=== PATIENT | female | born 1980 | race Caucasian/White ===

== ENCOUNTER 2018-12-28 12:44 | Emergency (ER) | payer OTHER, SELFPAY ==
[2018-12-28 12:49] VITALS: BP 121/51; PULSE 65; RESP 20; TEMP 36.1; O2SAT 100
--- NOTE | 2018-12-28 13:57 | ED.BACK ---
HPI - Back Pain/Injury <ODETTE Hi - Last Filed: 12/28/18 19:23> General Chief Complaint: Back Pain/Injury Stated Complaint: spinal injury Time Seen by Provider: 12/28/18 13:04 Source: patient Mode of arrival: ambulatory Limitations: no limitations History of Present Illness HPI Narrative: The patient is a 38-year-old female nonsmoker presents with her son for chief complaint of tingling in her lower lip. She states it is the entire lower lip. She states it started at 11:00 a.m. this morning. She states she thinks it is related to her CrossFit, on Tuesday the she had a frontal headache and neck pain. She felt better the next day when back to cross fit, and had her neck and head pain continue. She later saw her chiropractor, who cracked her neck. She saw her physio several times. She has had cupping. She states that she has been told she has tight muscles. She took ibuprofen yesterday. She denies any focal weakness, incontinence of bowel, incontinence of bladder or numbness in the saddle area. She denies any other neurological symptoms other than this tingling in her lower lip. She denies any history of cold sores. She denies any other numbness. She denies any new lipstick or substance Related Data Previous Rx's Medication Instructions Recorded cyclobenzaprine 10 mg PO TID PRN #30 tab 12/28/18 Allergies Allergy/AdvReac Type Severity Reaction Status Date / Time No Known Drug Allergies Allergy Unverified 04/29/18 13:15 Review of Systems <ODETTE Hi - Last Filed: 12/28/18 19:23> Review of Systems GENERAL: Denies chills, fatigue, malaise, fever, sweats. HEENT: See HPI RESPIRATORY: Denies dyspnea, cough, wheezing, hemoptysis, sputum. CARDIOVASCULAR: Denies chest pain, palpitations, orthopnea, edema, GASTROINTESTINAL: Denies nausea, vomiting, abdominal pain, diarrhea, constipation, melena. : Denies dysuria, frequency, incontinence, hematuria, urinary retention. MUSCULOSKELETAL: See HPI SKIN: Denies rash, skin lesions, or other NEUROLOGIC: Denies weakness, headache, numbness, change in speech, confusion, seizures, incoordination. PSYCHIATRIC: No concerning psychosocial issues. 12 point review of systems is negative except for those stated above PFSH <YEMI Hi-BC - Last Filed: 12/28/18 19:23> Social History Smoking Status: Never smoker Social History Smoking Status: Never smoker Exam <YEMI Hi-BC - Last Filed: 12/28/18 19:23> Narrative Exam Narrative: GENERAL: This is a well-nourished, well-developed patient, no acute distress pushing son in stroller HEAD: Atraumatic. Normocephalic. No temporal or scalp tenderness. EYES: Pupils equal round and reactive. Extraocular motions intact. No scleral icterus. No injection or drainage. ENT: Nose without bleeding, purulent drainage or septal hematoma. Throat without erythema, tonsillar hypertrophy or exudate. Uvula midline. Airway patent. No lip swelling. No erythema. No obvious lip injury NECK: Trachea midline. No JVD or lymphadenopathy. Supple, nontender, no meningeal signs. CARDIOVASCULAR: Regular rate and rhythm without murmurs, gallops, or rubs. RESPIRATORY: Clear to auscultation. Breath sounds equal bilaterally. No wheezes, rales, or rhonchi. GASTROINTESTINAL: Abdomen soft, non-tender, nondistended. No hepato-splenomegaly, or palpable masses. No guarding. EXTREMITIES: No clubbing, cyanosis, or edema. No joint tenderness, effusion, or edema noted. Strength is equal upper and lower extremities bilaterally. BACK: No palpable deformity or crepitance. No flank tenderness. No pain to C-spine T-spine or L-spine palpation. Pain to paraspinal muscle palpation on right side of thoracic spine. Pain bilateral sternocleidomastoid palpation NEURO: AOx3. Strength is equal upper and lower extremities bilaterally. Radialis reflexes intact bilaterally. Patellar reflex is intact bilaterally. No gross cranial nerve deficit. Sharp versus dull testing intact inaccurate on lips, face, bilateral arms, bilateral legs. Stable gait. SKIN: No rash or erythema. No rash erythema ecchymosis noted on face or back. Initial Vital Signs Initial Vital Signs: Vital Signs Temperature 97.0 F L 12/28/18 12:49 Pulse Rate 65 12/28/18 12:49 Respiratory Rate 20 12/28/18 12:49 Blood Pressure 121/51 L 12/28/18 12:49 Pulse Oximetry 100 12/28/18 12:49 <Indy Mejia DO - Last Filed: 01/01/19 07:38> Initial Vital Signs Initial Vital Signs: Vital Signs Temperature 97.0 F L 12/28/18 12:49 Pulse Rate 65 12/28/18 12:49 Respiratory Rate 20 12/28/18 12:49 Blood Pressure 121/51 L 12/28/18 12:49 Pulse Oximetry 100 12/28/18 12:49 Course <YEMI Hi-SCOT - Last Filed: 12/28/18 19:23> Vital Signs - 8 hr 12/28/18 12:49 12/28/18 14:28 Temperature 97.0 F L Pulse Rate 65 53 L Respiratory Rate 20 20 Blood Pressure 121/51 L 113/57 L Pulse Oximetry 100 100 <Indy Mejia DO - Last Filed: 01/01/19 07:38> Vital Signs - 8 hr 12/28/18 12:49 12/28/18 14:28 Temperature 97.0 F L Pulse Rate 65 53 L Respiratory Rate 20 20 Blood Pressure 121/51 L 113/57 L Pulse Oximetry 100 100 MDM - Back Pain/Injury <ODETTE Hi - Last Filed: 12/28/18 19:23> MDM Narrative Medical decision making narrative: The patient is a 38-year-old female who presents with tingling sensation and numbness in her lip that started at 11:30 a.m.. She is completely neurologically intact and has sharp versus dull testing within normal limits. She was able to differentiate between sharp versus dull on her lip as well, indicating lack of numbness. She has no red flag symptoms of fever, cancer, incontinence of bowel incontinence of bladder or saddle anesthesia. I discussed at length to come back to the ER if she had any acute findings or changes. I discussed the patient at length with Dr. Mejia given the incredibly focal complaint that she has. I do not believe she needs any imaging or immediate intervention at this point time. I encouraged her to follow up with primary care physician, they gave her contact information for the health human resource adviser. She was okay not doing imaging at this time. Patient has no questions or concerns upon discharge. Discussed at length return precautions of acute concerns as well as follow-up with PCP. Discharge Plan Departure Patient Disposition: Home Clinical Impression: Muscle spasm, Tingling Discharge Date/Time: 12/28/18 14:28 Interventions: ED Discharge Assessment Last Done: 12/28/18 14:28 Instructions: DI for Numbness/tingling, DI for Back Spasm, DI for Muscle Spasm Activity Restrictions/Additional Instructions: Please follow up with your primary provider. Please monitor for any other neurological symptoms such as numbness elsewhere, incontinence of bowel, incontinence of bladder saddle anesthesia. Please come back to emergency department for any acute concerns. I have given you a prescription of a muscle relaxer, which can be sedating. I also suggest continuing oral anti-inflammatories. I have referred you to the [facility], who can help you identify a primary care provider. Prescriptions: New cyclobenzaprine 10 mg tablet 10 mg PO TID PRN (Reason: muscle spasm) Qty: 30 RF: 0 Referrals: [facility] [Outside] <Indy Mejia DO - Last Filed: 01/01/19 07:38> Cosign ED Attending Coskristinature Attestation: I was immediately available in the department for consultation, case was discussed. No neurologic changes appreciated on patient. Plan for follow up with pcp. This documentation has been reviewed and I agree with assessment and plan. Supervised by Indy Mejia DO
--- NOTE | 2018-12-28 14:00 | ED_ITS ---
HPI - Back Pain/Injury <ODETTE Hi - Last Filed: 12/28/18 19:23> General Chief Complaint: Back Pain/Injury Stated Complaint: spinal injury Time Seen by Provider: 12/28/18 13:04 Source: patient Mode of arrival: ambulatory Limitations: no limitations History of Present Illness HPI Narrative: The patient is a 38-year-old female nonsmoker presents with her son for chief complaint of tingling in her lower lip. She states it is the entire lower lip. She states it started at 11:00 a.m. this morning. She states she thinks it is related to her Cross[employer], on Tuesday the she had a frontal headache and neck pain. She felt better the next day when back to cross fit, and had her neck and head pain continue. She later saw her chiropractor, who cracked her neck. She saw her physio several times. She has had cupping. She states that she has been told she has tight muscles. She took ibuprofen yesterday. She denies any focal weakness, incontinence of bowel, incontinence of bladder or numbness in the saddle area. She denies any other neurological symptoms other than this tingling in her lower lip. She denies any history of cold sores. She denies any other numbness. She denies any new lipstick or substance Related Data Previous Rx's Medication Instructions Recorded cyclobenzaprine 10 mg PO TID PRN #30 tab 12/28/18 Allergies Allergy/AdvReac Type Severity Reaction Status Date / Time No Known Drug Allergies Allergy Unverified 04/29/18 13:15 Review of Systems <ODETTE Hi - Last Filed: 12/28/18 19:23> Review of Systems GENERAL: Denies chills, fatigue, malaise, fever, sweats. HEENT: See HPI RESPIRATORY: Denies dyspnea, cough, wheezing, hemoptysis, sputum. CARDIOVASCULAR: Denies chest pain, palpitations, orthopnea, edema, GASTROINTESTINAL: Denies nausea, vomiting, abdominal pain, diarrhea, constipation, melena. : Denies dysuria, frequency, incontinence, hematuria, urinary retention. MUSCULOSKELETAL: See HPI SKIN: Denies rash, skin lesions, or other NEUROLOGIC: Denies weakness, headache, numbness, change in speech, confusion, seizures, incoordination. PSYCHIATRIC: No concerning psychosocial issues. 12 point review of systems is negative except for those stated above PFSH <YEMI Hi-BC - Last Filed: 12/28/18 19:23> Social History Smoking Status: Never smoker Social History Smoking Status: Never smoker Exam <YEMI Hi-BC - Last Filed: 12/28/18 19:23> Narrative Exam Narrative: GENERAL: This is a well-nourished, well-developed patient, no acute distress pushing son in stroller HEAD: Atraumatic. Normocephalic. No temporal or scalp tenderness. EYES: Pupils equal round and reactive. Extraocular motions intact. No scleral icterus. No injection or drainage. ENT: Nose without bleeding, purulent drainage or septal hematoma. Throat without erythema, tonsillar hypertrophy or exudate. Uvula midline. Airway patent. No l ip swelling. No erythema. No obvious lip injury NECK: Trachea midline. No JVD or lymphadenopathy. Supple, nontender, no meningeal signs. CARDIOVASCULAR: Regular rate and rhythm without murmurs, gallops, or rubs. RESPIRATORY: Clear to auscultation. Breath sounds equal bilaterally. No wheezes, rales, or rhonchi. GASTROINTESTINAL: Abdomen soft, non-tender, nondistended. No hepato- splenomegaly, or palpable masses. No guarding. EXTREMITIES: No clubbing, cyanosis, or edema. No joint tenderness, effusion, or edema noted. Strength is equal upper and lower extremities bilaterally. BACK: No palpable deformity or crepitance. No flank tenderness. No pain to C- spine T-spine or L-spine palpation. Pain to paraspinal muscle palpation on right side of thoracic spine. Pain bilateral sternocleidomastoid palpation NEURO: AOx3. Strength is equal upper and lower extremities bilaterally. Radialis reflexes intact bilaterally. Patellar reflex is intact bilaterally. No gross cranial nerve deficit. Sharp versus dull testing intact inaccurate on lips, face, bilateral arms, bilateral legs. Stable gait. SKIN: No rash or erythema. No rash erythema ecchymosis noted on face or back. Initial Vital Signs Initial Vital Signs: Vital Signs Temperature 97.0 F L 12/28/18 12:49 Pulse Rate 65 12/28/18 12:49 Respiratory Rate 12/28/18 12:49 Blood Pressure 121/51 L 12/28/18 12:49 Pulse Oximetry 100 12/28/18 12:49 <Indy Mejia DO - Last Filed: 01/01/19 07:38> Initial Vital Signs Initial Vital Signs: Vital Signs Temperature 97.0 F L 12/28/18 12:49 Pulse Rate 65 12/28/18 12:49 Respiratory Rate 20 12/28/18 12:49 Blood Pressure 121/51 L 12/28/18 12:49 Pulse Oximetry 100 12/28/18 12:49 Course <ODETTE Hi - Last Filed: 12/28/18 19:23> Vital Signs - 8 hr 12/28/18 12:49 12/28/18 14:28 Temperature 97.0 F L Pulse Rate 65 53 L Respiratory Rate 20 20 Blood Pressure 121/51 L 113/57 L Pulse Oximetry 100 100 <Indy Mejia DO - Last Filed: 01/01/19 07:38> Vital Signs - 8 hr 12/28/18 12:49 12/28/18 14:28 Temperature 97.0 F L Pulse Rate 65 53 L Respiratory Rate 20 20 Blood Pressure 121/51 L 113/57 L Pulse Oximetry 100 100 MDM - Back Pain/Injury <ODETTE Hi - Last Filed: 12/28/18 19:23> MDM Narrative Medical decision making narrative: The patient is a 38-year-old female who presents with tingling sensation and numbness in her lip that started at 11:30 a.m.. She is completely neurologically intact and has sharp versus dull testing within normal limits. She was able to differentiate between sharp versus dull on her lip as well, indicating lack of numbness. She has no red flag symptoms of fever, cancer, incontinence of bowel incontinence of bladder or saddle anesthesia. I discussed at length to come back to the ER if she had any acute findings or changes. I discussed the patient at length with Dr. Mejia given the incredibly focal complaint that she has. I do not believe she needs any imaging or immediate intervention at this point time. I encouraged her to follow up with primary care physician, they gave her contact information for the health family resource coordinator. She was okay not doing imaging at this time. Patient has no questions or concerns upon discharge. Discussed at length return precautions of acute concerns as well as follow-up with PCP. Discharge Plan Departure Patient Disposition: Home Clinical Impression: Muscle spasm, Tingling Discharge Date/Time: 12/28/18 14:28 Interventions: ED Discharge Assessment Last Done: 12/28/18 14:28 Instructions: DI for Numbness/tingling, DI for Back Spasm, DI for Muscle Spasm Activity Restrictions/Additional Instructions: Please follow up with your primary provider. Please monitor for any other neurological symptoms such as numbness elsewhere, incontinence of bowel, incontinence of bladder saddle anesthesia. Please come back to emergency department for any acute concerns. I have given you a prescription of a muscle relaxer, which can be sedating. I also suggest continuing oral anti-inflammatories. I have referred you to the [facility], who can help you identify a primary care provider. Prescriptions: New cyclobenzaprine 10 mg tablet 10 mg PO TID PRN (Reason: muscle spasm) Qty: 30 RF: 0 Referrals: [facility] [Outside] <Indy Mejia DO - Last Filed: 01/01/19 07:38> Cosign ED Attending Cosignature Attestation: I was immediately available in the department for consultation, case was discussed. No neurologic changes appreciated on patient. Plan for follow up with pcp. This documentation has been reviewed and I agree with assessment and plan. Supervised by Indy Mejia DO
[2018-12-28 14:28] VITALS: BP 113/57; PULSE 53; RESP 20; O2SAT 100
== END 2018-12-28 14:28 | disposition home or self-care (01) ==
PROVIDERS: Emergency Provider Nurse Practitioner Family
DX: M62.838 Other muscle spasm (principal); R20.2 Paresthesia of skin
CPT/HCPCS: 99282; 99283

== ENCOUNTER 2019-02-12 19:10 | Emergency (ER) | payer OTHER, SELFPAY ==
[2019-02-12 19:13] VITALS: BP 117/74; PULSE 66; RESP 16; TEMP 36.9; O2SAT 98
--- NOTE | 2019-02-12 20:30 | ED_ITS ---
HPI - Headache General Chief Complaint: Headache Stated Complaint: NECK PAIN HEADACHE NUMBNESS Time Seen by Provider: 02/12/19 20:29 Source: patient Mode of arrival: ambulatory Limitations: no limitations History of Present Illness HPI Narrative: 38-year-old female nonsmoker with benign medical history presents for the 2nd time in 9 weeks with similar complaints. Today she complains of some mild posterior neck pain which extends to the base of her head and occasional blurred vision. She denies any specifically focal neurologic findings such as extremity numbness, tingling or weakness. She states her symptoms started, as stated, 9 weeks ago when she was starting a new workout regimen in which she was lifting 35 lb cattle Dietrich's over her head and she felt a sudden stinging type pain in her neck. She was seen and evaluated at our emergency department and had no significant findings. Since then her symptoms have been rather consistent and she states the has the above complaints everyday. She has seen multiple [facility] rope actors and other providers without any relief. Her headache is mild and occipital and has no significant provocation, palliation or radiation. She denies any illness such as runny nose, sinus pain, sore throat, cough or chest pain. She has had no fever or chills. She states her brother has a kinked carotid artery as stated by her mother MD Complaint: headache Onset (ago): week(s) Onset description: sudden Location: occipital Severity: moderate Quality: aching Relieving factors: nothing Exacerbating factors: movement of head/neck Context: occurred with exertion/activity Treatments prior to arrival: none Related Data Previous Rx's Medication Instructions Recorded cyclobenzaprine 10 mg PO TID PRN #30 tab 12/28/18 Allergies Allergy/AdvReac Type Severity Reaction Status Date / Time No Known Drug Allergies Allergy Verified 02/12/19 19:13 Review of Systems Constitutional Denies chills, Denies fever(s), Reports headache(s), Denies lethargy and Denies weakness Eyes Denies change in vision, Denies eye discharge, Denies irritation and Denies loss of vision ENT Ears, Nose, Mouth, and Throat: Denies change in voice, Reports headache(s), Denies neck pain and Denies sore throat Cardiovascular Denies chest pain, Denies irregular heart rhythm, Denies lightheadedness, Denies palpitations, Denies dyspnea, Denies dyspnea on exertion and Denies orthopnea Respiratory Denies cough, Denies dyspnea, Denies dyspnea on exertion and Denies wheezing Gastrointestinal Gastrointestinal: Denies abdominal pain, Denies change in bowel habits, Denies diarrhea, Denies nausea and Denies vomiting Genitourinary Denies hematuria, Denies flank pain, Denies urinary incontinence and Denies urinary urgency Musculoskeletal Denies neck pain Integumentary/Breasts Denies pruritus, Denies erythema, Denies rash and Denies wounds Neurologic Denies confusion, Reports headache(s), Denies loss of vision and Denies weakness Psychiatric Denies anxiety, Denies confusion, Denies depression, Denies homicidal ideation and Denies suicidal ideation Endocrine Denies palpitations Hematologic/Lymphatic Denies easy bruising Allergic/Immunologic Denies wheezing PFSH Social History Smoking Status: Never smoker Social History Smoking Status: Never smoker Exam Narrative Exam Narrative: GENERAL: This is a well-nourished, well-developed patient, in mild distress. HEAD: Atraumatic. Normocephalic. No temporal or scalp tenderness. EYES: Pupils equal round and reactive. Extraocular motions intact. No scleral icterus. No injection or drainage. ENT: Nose without bleeding, purulent drainage or septal hematoma. Throat without erythema, tonsillar hypertrophy or exudate. Uvula midline. Airway patent. NECK: Trachea midline. No JVD or lymphadenopathy. Supple, nontender, no meningeal signs. CARDIOVASCULAR: Regular rate and rhythm without murmurs, gallops, or rubs. RESPIRATORY: Clear to auscultation. Breath sounds equal bilaterally. No wheezes, rales, or rhonchi. GASTROINTESTINAL: Abdomen soft, non-tender, nondistended. No hepato-sp lenomegaly, or palpable masses. No guarding. EXTREMITIES: No clubbing, cyanosis, or edema. No joint tenderness, effusion, or edema noted. BACK: Nontender without deformity or crepitance. No flank tenderness. NEURO: AOx3. SKIN: No rash or erythema. Initial Vital Signs Initial Vital Signs: Vital Signs Temperature 98.5 F 02/12/19 19:13 Pulse Rate 66 02/12/19 19:13 Respiratory Rate 16 02/12/19 19:13 Blood Pressure 117/74 02/12/19 19:13 Pulse Oximetry 98 02/12/19 19:13 Course Orders Ordered: ED Orders 02/12/19 21:36 CT angio head and neck Stat 02/12/19 21:45 Basic Metabolic Panel Stat Complete Blood Count AUTO DIFF Stat Discontinued Medications Sodium Chloride (Normal Saline 0.9%) 1,000 mls @ 1,000 mls/hr IV BOLUS ONE Stop: 02/12/19 22:35 Last Infusion: 02/12/19 23:23 Dose: 0 mls/hr Infusion: 02/12/19 22:31 Dose: 1,000 mls/hr Infusion: 02/12/19 22:17 Dose: 0 mls/hr Admin: 02/12/19 22:05 Dose: 1,000 mls/hr Vital Signs - 8 hr 02/12/19 23:22 02/13/19 00:17 Temperature 98.0 F Pulse Rate 58 L 70 Respiratory Rate 16 16 Blood Pressure [Left Arm] 122/91 H 102/59 L Pulse Oximetry 100 100 MDM - Headache Differential Diagnosis Differential diagnosis: Likely migraine, tension headache, subarachnoid hemorrhage, headache, meningitis, sinusitis and postconcussion syndrome Medical Records Attestation: I reviewed the patient's medical records. Lab Data Attestation: I reviewed the patient's lab results. Result diagrams: 02/12/19 21:45 02/12/19 21:45 Lab Results 02/12/19 02/12/19 Range/Units 21:45 21:45 WBC 10.6 (4.5-11.0) X10^3/uL RBC 4.52 (4.0-5.2) X10^6/uL Hgb 13.1 (12.0-16.0) g/dL Hct 39.2 (36-46) % MCV 86.7 (80-100) fL MCH 28.9 (26-34) PG MCHC 33.4 (30-36) % RDW 13.7 (11.6-14.8) % Plt Count 399 (150-400) X10^3/uL Neut % (Auto) 56.4 (50-75) % Lymph % (Auto) 36.1 (25-40) % Douglas % (Auto) 5.5 (3-14) % Eos % (Auto) 1.5 L (2-4) % Baso % (Auto) 0.5 (0-2) % Neut # (Auto) 6000 (7372-2738) /uL Lymph # (Auto) 3800 (2163-4196) /uL Douglas # (Auto) 600 (0-900) /uL Eos # (Auto) 200 (0-450) /uL Baso # (Auto) 100 (0-100) /uL Sodium 140 (137-145) mmol/L Potassium 3.8 (3.4-5.1) mmol/L Chloride 102 (98-107) mmol/L Carbon Dioxide 29 (22-32) mmol/L BUN 15 (7-17) mg/dL Creatinine 0.70 (0.52-1.04) mg/dL Estimated GFR > 60.0 (>60) mL/min BUN/Creatinine Ratio 21.4 (6-22) Glucose 89 (70-100) mg/dL Calcium 9.5 (8.4-10.2) mg/dL Point of Care Testing Test Results Negative Urine Dip Bedside Urine Glucose Negative Bedside Urine Bilirubin - Negative Bedside Urine Ketone - Negative Urine Specific [place] 1.010 Bedside Urine Occult Blood - Negative Bedside Urine pH 6.5 Bedside Urine Protein - Negative Bedside Urine Urobilinogen - Negative Bedside Urine Nitrite - Negative Bedside Urine Leukocytes - Negative Esterase Imaging Data CTA Head/Neck: Radiologist's impression: Patent head and neck CT angiography Slightly irregular middle anterior / anterior cerebral arteries are indeterminant MDM Narrative Medical decision making narrative: Multiple etiologies for patient's symptoms considered including: [Subarachnoid hemorrhage versus aneurysmal change versus stroke versus dissection versus meningitis versus other] Patient's symptoms improved or duration of stay with above-stated therapies. Findings and discharge diagnosis discussed with patient/family followed by verbalization of understanding Return precautions discussed with patient/family whom verbalize understanding. Discharge Plan Departure Patient Disposition: Home Clinical Impression: Headache Qualifiers: Headache type: unspecified Headache chronicity pattern: acute headache Intrac tability: not intractable Qualified Code(s): R51 - Headache Discharge Date/Time: 02/13/19 00:42 Interventions: ED Discharge Assessment Last Done: 02/13/19 00:42 Activity Restrictions/Additional Instructions: *You have been diagnosed with [headache and neck pain] *What to do: *Take medications as directed: Tylenol or Motrin for pain *Follow up with your primary care provider in 2-3 days, call for an appointment. Let them know you were seen in the Emergency Department and that we ask that you be seen in follow up *Return to ER if you should have any new, worsening or concerning symptoms Prescriptions: No Action cyclobenzaprine 10 mg tablet 10 mg PO TID PRN (Reason: muscle spasm) Qty: 30 RF: 0
--- NOTE | 2019-02-12 21:36 | DI.CT.S_ITS ---
PROCEDURE: CT ANGIO HEAD AND NECK INDICATIONS: head/neck pain, neuro symptoms, sudden onset with heavy lift TECHNIQUE: Pre-contrast 4.5 mm thick sections acquired from the foramen magnum to the vertex. After the administration of intravenous contrast, 1 mm thick sections acquired from the aortic arch through the [place] of [place]. Post-contrast 4.5 mm thick sections then re-acquired from the foramen magnum to the vertex. 3-dimensional bwqxyiq-vilwzvrao-rjoybmamuw (MIP) and/or volume rendering reformats were acquired of the central intracranial vasculature and neck separately. COMPARISON: None. FINDINGS: Image quality: Excellent. BRAIN: CSF spaces: Ventricles are normal in size and shape. Basal cisterns are patent. No extra-axial fluid collections. Brain: No midline shift. No intracranial bleeds or masses. Robertson-white matter interface appears intact. Skull and face: Calvarium and facial bones appear intact, without suspicious lesions. Orbits appear normal. Sinuses: Sinuses and mastoids are clear. HEAD CT ANGIOGRAPHY: Anterior circulation: Intracranial internal carotid arteries are normal in flow. There is mild, slightly irregular, short segment narrowing of the left internal carotid artery at the clinoid segment. The flow within the paired anterior cerebral arteries is normal and symmetric. The flow within the middle cerebral arteries is normal and symmetric. There is slight irregularity of the M1 segments of the middle cerebral arteries bilaterally in the A1 segments of the interstitial arteries bilaterally. The anterior communicating artery is seen. No aneurysms are seen. Posterior circulation: Visualized portions of the vertebral arteries demonstrate normal caliber, and join to form a normal appearing basilar artery. Flow within the posterior cerebral arteries is normal and symmetric. No aneurysms are seen. NECK CT ANGIOGRAPHY: Carotid system: The great vessels demonstrate a conventional anatomy as they arise from the aortic arch. The origins of the common carotid arteries appear patent. The common carotid arteries demonstrate normal caliber and courses. The bifurcation regions are both widely patent. The internal carotid arteries demonstrate normal calibers and courses. Posterior circulation: The origins of the vertebral arteries both appear widely patent. The more superior extracranial portions of both vertebral arteries also demonstrate normal courses and calibers. They join to form a normal appearing basilar artery. Soft tissues: Visualized neck soft tissues demonstrate no suspicious abnormalities. Bones: No suspicious bony lesions. Visualized cervical spine appears normally aligned. IMPRESSION: 1. No acute intracranial disease process. 2. No large vessel occlusion, hemodynamically significant stenosis, vascular dissection or aneurysm. 3. Slight irregularity of the proximal anterior and middle cerebral arteries bilaterally with slight irregularity and slight narrowing of the clinoid segment left internal carotid artery. Finding is indeterminate, but can be related to vasculitis. Please correlate with clinical and laboratory data. Any quantitative measurements of stenosis were performed using NASCET criteria. Dictated by: Ninfa Ching MD, PhD on 02/13/2019 at 8:48 Approved by: Ninfa Ching MD, PhD on 02/13/2019 at 8:55
[2019-02-12 21:55] LABS: Add Manual Diff / Slide Review NO; Basophils Absolute Auto 100 /uL (0-100); Basophils Percent Auto 0.5 % (0-2); Eosinophils Absolute Auto 200 /uL (0-450); Eosinophils Percent Auto 1.5 % (2-4); Hematocrit 39.2 % (36-46); Hemoglobin 13.1 g/dL (12.0-16.0); Lymphocytes Absolute Auto 3800 /uL (1100-4500); Lymphocytes Percent Auto 36.1 % (25-40); Mean Corpuscular HGB Conc 33.4 % (30-36); Mean Corpuscular Hemoglobin 28.9 PG (26-34); Mean Corpuscular Volume 86.7 fL (80-100); Monocytes Absolute Auto 600 /uL (0-900); Monocytes Percent Auto 5.5 % (3-14); Neutrophils Absolute Auto 6000 /uL (1500-7000); Neutrophils Percent Auto 56.4 % (50-75); Platelet Count 399 X10^3/uL (150-400); Red Blood Cell Count 4.52 X10^6/uL (4.0-5.2); Red Cell Distribution Width 13.7 % (11.6-14.8); White Blood Cell Count 10.6 X10^3/uL (4.5-11.0)
[2019-02-12] MEDS: SODIUM CHLORIDE 0.9% 1,000 ML 1000 ML IV (22:05)
[2019-02-12 22:06] LABS: BUN Creatinine Ratio 21.4 (6-22); Blood Urea Nitrogen 15 mg/dL (7-17); Calcium 9.5 mg/dL (8.4-10.2); Carbon Dioxide 29 mmol/L (22-32); Chloride 102 mmol/L (98-107); Estimated Glomerular Filt Rate > 60.0 mL/min (>60); Glucose 89 mg/dL (70-100); HEMOLYSIS < 15 (0-50); Potassium 3.8 mmol/L (3.4-5.1); Sodium 140 mmol/L (137-145)
[2019-02-12 23:22] VITALS: BP 122/91; PULSE 58; RESP 16; O2SAT 100
[2019-02-13 00:17] VITALS: BP 102/59; PULSE 70; RESP 16; TEMP 36.7; O2SAT 100
== END 2019-02-13 00:42 | disposition home or self-care (01) ==
PROVIDERS: Emergency Provider Emergency Medicine
DX: R51 Headache (principal)
CPT/HCPCS: 36591; 70496; 70498; 80048; 81003; 81025; 85025; 96360; 99283; 99284; Q9967

== ENCOUNTER → 2019-06-15 12:11 | Outpatient (CLI) | payer OTHER, SELFPAY ==
--- NOTE | 2019-06-15 12:13 | DI.RAD.S_ITS ---
PROCEDURE: XR CERVICAL SPINE 4V OR 5V INDICATIONS: Neck pain upper extremity paresthesias TECHNIQUE: 5 views of the cervical spine acquired. COMPARISON: None. FINDINGS: Bones: No fractures or dislocations to the T1 level. Oblique images demonstrate no bony foraminal stenoses. Soft tissues: No prevertebral soft tissue swelling. IMPRESSION: Normal examination. Source and neck pain is not known. Dictated by: Lukas Bang M.D. on 06/20/2019 at 16:13 Approved by: Lukas Bang M.D. on 06/20/2019 at 16:13
== END ==
PROVIDERS: Visit Provider Physical Medicine & Rehabilitation
DX: M54.2 Cervicalgia (principal); R20.2 Paresthesia of skin
CPT/HCPCS: 72050

== ENCOUNTER → 2019-08-14 09:19 | Outpatient (CLI) | payer OTHER, SELFPAY ==
--- NOTE | 2019-08-14 09:20 | DI.MRI.S_ITS ---
PROCEDURE: MR BRAIN (IAC) WWO CON INDICATIONS: Cervicalgenic headaches TECHNIQUE: Noncontrast sagittal T1 spin echo, axial FLAIR, axial gradient echo, axial diffusion and ADC through the brain. Axial thin-slice 3D CISS, coronal TruFISP, axial T1 spin echo with fat saturation through the internal auditory canals. After the administration of contrast, thin slice axial and coronal T1 spin echo with fat saturation through the internal auditory canals, and axial T1 spin echo with fat saturation through the brain. COMPARISON: [facility], CT, CT ANGIO HEAD AND NECK, 02/12/2019, 21:40. [facility], MR, MR CERVICAL SPINE WO CON, 08/14/2019, 9:22. FINDINGS: Image quality: Excellent. Cerebellopontine angles: No cerebellopontine angle masses. Inner ear structures appear normally formed. No suspicious enhancement in the internal auditory canal or along the course of the 7th cranial nerve. CSF spaces: Ventricles are normal in size and shape. No extra-axial fluid collections. Basal cisterns are patent. Brain: No intracranial bleeds or mass effects. Robertson-white matter interface is intact. No abnormal intracranial enhancement. Diffusion weighted images demonstrate no acute ischemic insults. Brainstem appears normal. Normal intravascular flow voids are present. Skull and face: Calvarial marrow signal is normal. Orbits appear normal. Sinuses: There is a prominent mucous retention cyst seen involving the left maxillary sinus. Moderate mucosal thickening is seen within the right maxillary sinus, with mild mucosal thickening seen elsewhere within the paranasal sinuses. No abnormal fluid is seen within the mastoid air cells. IMPRESSION: Unremarkable intracranial study, without an imaging explanation found for the patient's presenting history of headache. No masses or abnormal enhancement can be seen involving the cerebellopontine angle cisterns or the internal auditory canals. Dictated by: Devin Nuno M.D. on 08/14/2019 at 11:07 Approved by: Devin Nuno M.D. on 08/14/2019 at 11:13
--- NOTE | 2019-08-14 09:20 | DI.MRI.S_ITS ---
PROCEDURE: MR CERVICAL SPINE WO CON INDICATIONS: Cervicalgenic headaches TECHNIQUE: Noncontrast sagittal T1 spin echo and T2 fast spin echo, sagittal STIR, foraminal oblique sagittal T2 fast spin echo, and axial gradient echo or T2 fast spin echo through the cervical spine. COMPARISON: [facility], MR, MR BRAIN (IAC) WWO CON, 08/14/2019, 9:44. [facility], CR, XR CERVICAL SPINE 4V OR 5V, 06/15/2019, 12:12. [facility], CT, CT ANGIO HEAD AND NECK, 02/12/2019, 21:40. FINDINGS: Image quality: Excellent. Alignment and Curvature: There is straightening of the normal cervical lordosis. No focal AP alignment abnormality is seen. Bone Marrow: Marrow demonstrates normal overall signal. Spinal Cord: Visualized spinal cord has normal size and signal. No cerebellar tonsillar herniation. Paraspinous Soft Tissues: No paravertebral masses. Prevertebral soft tissues are normal in thickness. A prominent mucous retention cyst can be seen within the left maxillary sinus. C2-C3: Normal appearance. C3-C4: Normal appearance. C4-C5: Normal appearance. C5-C6: Normal appearance. C6-C7: Normal appearance. C7-T1: Normal appearance. IMPRESSION: Straightening of the normal cervical lordosis is seen, which is commonly observed in patients with muscular spasm. No significant disc pathology, central canal narrowing, or neural foraminal narrowing seen. Dictated by: Devin Nuno M.D. on 08/14/2019 at 11:13 Approved by: Devin Nuno M.D. on 08/14/2019 at 11:15
== END ==
PROVIDERS: PCP Family Medicine; Referring Provider Family Medicine; Visit Provider Family Medicine
DX: R51 Headache (principal); M47.22 Other spondylosis with radiculopathy, cervical region
CPT/HCPCS: 70553; 72141; A9579

== ENCOUNTER → 2019-11-28 15:41 | Outpatient (CLI) | payer OTHER, SELFPAY ==
--- NOTE | 2019-11-28 15:43 | DI.US.S_ITS ---
PROCEDURE: US PELVIC COMPLETE INDICATIONS: DYSMENORRHEA, DUB SINCE JULY 2019 TECHNIQUE: Real-time scanning was performed of the pelvic organs, with image documentation. Additional endovaginal scanning was necessary due to incomplete visualization of the adnexal and endometrial structures by transabdominal scanning. COMPARISON: None. FINDINGS: Transabdominal scanning: A mild amount of free pelvic fluid is seen, which is considered to be within physiologic limits. Limited scanning through the kidneys shows no hydronephrosis. Endovaginal scanning: Uterus: Uterus is normal in size at 8 x 3.8 x 5.6 cm. The endometrium measures 4 mm in combined thickness. Apparent cystic collections can be seen within the fundus of the uterus, which measure up to 1.7 centimeters. Ovaries: The right ovary measures 4.4 x 3.2 x 2.7 cm. The left ovary measures 3.9 x 2 x 1.8 cm. The ovaries have a normal sonographic appearance. No adnexal masses are seen. IMPRESSION: Apparent cystic collections seen within the fundus of the uterus. Otherwise, no significant pelvic ultrasound abnormality can be seen. Dictated by: Devin Nuno M.D. on 11/28/2019 at 16:30 Approved by: Devin Nuno M.D. on 11/28/2019 at 16:32
== END ==
PROVIDERS: PCP Family Medicine; Referring Provider Family Medicine; Visit Provider Family Medicine
DX: N94.6 Dysmenorrhea, unspecified (principal); N85.8 Other specified noninflammatory disorders of uterus
CPT/HCPCS: 76830; 76856

== ENCOUNTER → 2020-03-11 07:22 | Outpatient (CLI) | payer OTHER, SELFPAY ==
--- NOTE | 2020-03-11 07:23 | DI.US.S_ITS ---
PROCEDURE: US PELVIC COMPLETE INDICATIONS: DYSMENORRHEA TECHNIQUE: Real-time scanning was performed of the pelvic organs, with image documentation. Additional endovaginal scanning was necessary due to incomplete visualization of the adnexal and endometrial structures by transabdominal scanning. COMPARISON: [facility], , PELVIC COMPLETE, 11/28/2019, 16:05. FINDINGS: Transabdominal scanning: Limited scanning through the kidneys shows no hydronephrosis. No pathologic free abdominal or pelvic fluid. Two previously present cysts are seen at the endometrial margin without significant change in size, measuring 1.2 cm at the simple cyst and 1.0 cm at the mildly complex cyst previously documented in November of this year.. Endovaginal scanning: Uterus: Uterus is normal in size at 4.6 x 6.1 x 9.0 cm, anteverted. The endometrium measures 3.2 mm in combined thickness. Ovaries: The right ovary measures 3.6 x 2.2 x 1.9 cm and the left measures 4.1 x 2.2 x 4.5 cm with a simple appearing left ovarian cyst measuring up to 1.5 x 2.3 x 2.3 cm. IMPRESSION: Etiology of vaginal bleeding is not identified. Dictated by: Lukas Bang M.D. on 03/11/2020 at 10:57 Approved by: Lukas Bang M.D. on 03/11/2020 at 11:28
== END ==
PROVIDERS: PCP Family Medicine; Referring Provider Obstetrics & Gynecology; Visit Provider Obstetrics & Gynecology
DX: N94.6 Dysmenorrhea, unspecified (principal); N83.202 Unspecified ovarian cyst, left side
CPT/HCPCS: 76830; 76856

== ENCOUNTER → 2020-03-24 08:58 | Outpatient (CLI) | payer OTHER, SELFPAY ==
--- NOTE | 2020-03-24 | DI.RAD.S_ITS ---
PROCEDURE: XR LUMBAR SPINE 2-3V INDICATIONS: low back pain, pressure lower back/pelvic area TECHNIQUE: 3 views of the lumbar spine were acquired. COMPARISON: None. FINDINGS: Bones: No fracture. Minimal levocurvature. Mild narrowing of the L1-L2 disc space. The remaining lumbar disc spaces grossly preserved. Multilevel degenerative endplate sclerosis and spurring. Diffuse facet arthropathy. IMPRESSION: Mild diffuse lumbar spondylosis and minimal levocurvature Facet arthropathy. Dictated by: Jhonatan Meza M.D. on 03/24/2020 at 11:04 Approved by: Jhonatan Meza M.D. on 03/24/2020 at 11:05
== END ==
PROVIDERS: PCP Family Medicine; Referring Provider Family Medicine; Visit Provider Family Medicine
DX: M54.5 Low back pain (principal); M47.816 Spondylosis without myelopathy or radiculopathy, lumbar region
CPT/HCPCS: 72100

== ENCOUNTER → 2020-05-30 14:55 | Outpatient (CLI) | payer OTHER, SELFPAY ==
--- NOTE | 2020-05-30 14:58 | DI.RAD.S_ITS ---
PROCEDURE: XR SHOULDER RT MIN 2V INDICATIONS: Show Progressive right superior shoulder discomfort and posterior TECHNIQUE: 3 views of the shoulder were acquired. COMPARISON: None. FINDINGS: Bones: Plate and screw fixation of the right clavicle. There is expected postoperative alignment. Hardware appears intact without evidence of loosening. Scattered degenerative subchondral sclerosis and spurring. No acute fracture seen. Soft tissues: No suspicious soft tissue calcifications. IMPRESSION: Intact plate and screw fixation of the right clavicle. Expected postoperative alignment. Mild right shoulder joint degeneration Dictated by: Jhonatan Meza M.D. on 05/30/2020 at 16:22 Approved by: Jhonatan Meza M.D. on 05/30/2020 at 16:24
== END ==
PROVIDERS: PCP Family Medicine; Referring Provider Family Medicine; Visit Provider Family Medicine
DX: M19.011 Primary osteoarthritis, right shoulder (principal); M47.22 Other spondylosis with radiculopathy, cervical region; Z87.81 Personal history of (healed) traumatic fracture
CPT/HCPCS: 73030

== ENCOUNTER → 2020-09-16 12:14 | Outpatient (CLI) | payer OTHER, SELFPAY ==
[2020-09-16 16:00] LABS: Follicle Stimulating Hormone 6.24 mIU/mL; Luteinizing Hormone 3.52 mIU/mL
[2020-09-16 16:08] LABS: TSH w/ Reflex to FT4 1.09 uIU/mL (0.47-4.68)
[2020-09-18 13:49] LABS: Estrogen 150 pg/mL (.)
== END ==
PROVIDERS: PCP Family Medicine; Referring Provider Family Medicine; Visit Provider Specialist
DX: R14.0 Abdominal distension (gaseous) (principal); N93.9 Abnormal uterine and vaginal bleeding, unspecified; R53.83 Other fatigue
CPT/HCPCS: 36415; 82672; 83001; 83002; 83516; 84443; 86255

== ENCOUNTER 2020-10-23 11:37 | Emergency (ER) | payer OTHER, SELFPAY ==
[2020-10-23 11:41] VITALS: BP 160/87; PULSE 69; RESP 18; TEMP 36.7; O2SAT 100; BMI 32.3
--- NOTE | 2020-10-23 14:23 | ED_ITS ---
HPI - Neuro Symptoms/Deficit General Chief Complaint: Neuro Symptoms/Deficit Stated Complaint: NUMBNESS IN GROIN AND LEGS Time Seen by Provider: 10/23/20 13:47 Source: patient Mode of arrival: Ambulatory Limitations: no limitations History of Present Illness HPI Narrative: Patient is a 40-year-old female who presents with back pain and increasing leg weakness. She says it started in July she has had some right sciatic and low back pain. She did have some numbness in her foot it progressed up to her knee. She has been going to physical therapy she did a trial of ibuprofen for 1 month which she said did not help at all. However over the last 2 days she has had significant progression of symptoms. She says that she feels like her whole right leg is . She now has some symptoms left leg as well she has some numbness and tingling. She feels like she is urinating frequently she can still tell when she is urinating. No changes in bowel habits. She denies any fever or chills. No other symptoms. She just overall feels like her back is for restless getting worse Onset (ago): day(s) On Anticoagulants: No Related Data Previous Rx's Medication Instructions Recorded trazodone 50 mg tablet 50 mg PO BEDTIME #30 tab 05/30/20 cyclobenzaprine 5 mg PO TID PRN #10 tab 10/23/20 gabapentin 300 mg PO BEDTIME #10 cap 10/23/20 Allergies Allergy/AdvReac Type Severity Reaction Status Date / Time No Known Drug Allergies Allergy Verified 06/12/20 13:43 Review of Systems Review of Systems ROS Unobtainable: All systems reviewed & are unremarkable except as noted in HPI and below Constitutional Constitutional: Denies chills, Denies fever(s), Denies lethargy and Denies weakness ENT Ears, Nose, Mouth, and Throat: Denies change in voice, Denies neck pain and Denies sore throat Cardiovascular Cardiovascular: Denies dyspnea and Denies dyspnea on exertion Respiratory Respiratory: Denies cough, Denies dyspnea, Denies dyspnea on exertion and Denies wheezing Gastrointestinal Gastrointestinal: Denies abdominal pain, Denies change in bowel habits, Denies fecal incontinence, Denies diarrhea, Denies nausea and Denies vomiting Genitourinary Genitourinary: Denies urinary hesitancy, Denies urinary incontinence and Reports urinary urgency Genitourinary: Denies urinary incontinence, Denies urinary hesitancy and Reports urinary urgency Musculoskeletal Musculoskeletal: Reports as per HPI, Reports back pain, Denies neck pain, Reports numbness and Reports tingling Neurologic Neurologic: Reports as per HPI, Reports numbness, Reports tingling and Denies weakness Hematologic/Lymphatic On Anticoagulants: No Allergic/Immunologic Allergic/Immunologic: Denies wheezing Patient History Medical History Acquired short leg syndrome on left Anxiety Cervical spondylosis with radiculopathy Cervicogenic headache History of fracture of clavicle Low back pain Pelvic somatic dysfunction Surgical History History of endometrial ablation Status post surgical removal of both fallopian tubes Social History Smoking Status: Never smoker second hand exposure: No alcohol intake: current substance use type: does not use Smoking Status: Never smoker alcohol intake frequency: a few times a week Substance Use Type: does not use Exam Initial Vital Signs Initial Vital Signs: Vital Signs Temperature 98.1 F 10/23/20 11:41 Pulse Rate 69 10/23/20 11:41 Respiratory Rate 18 10/23/20 11:41 Blood Pressure 160/87 H 10/23/20 11:41 Pulse Oximetry 100 10/23/20 11:41 GENERAL: Alert pleasant well-appearing 40-year-old and in no acute distress. HEENT: Head atraumatic,EOMI, pupils reactive, face symmetric, moist mucous membranes CARDIOVASCULAR: Regular rate and rhythm without murmurs, rubs or gallops. RESPIRATORY: Breath sounds equal bilaterally, no wheezes rales or rhonchi. ABDOMEN: Soft, nontender. Normoactive bowel sounds all 4 quadrants. No guarding or rebound. BACK: No vertebral tenderness she is tender over her right SI joint. EXTREMITIES: Normal range of motion, no clubbing or edema. Neurovascularly intact NEUROLOGICAL: Alert and oriented x4. DTR lower extremities2/4, sensation to sharp and dull intact bilaterally and equal bilaterally. Ambulatory in the ED without difficulty SKIN: Warm, dry, no laceration, no petechiae, no rashes or lesions. Course Orders Ordered: ED Orders 10/23/20 14:34 MR lumbar spine wo/w con Stat 10/23/20 15:15 Complete Blood Count AUTO DIFF Stat Comprehensive Metabolic Panel Stat Vital Signs Vital signs: Vital Signs - 8 hr 10/23/20 11:41 10/23/20 17:31 Temperature 98.1 F Pulse Rate 69 Respiratory Rate 18 16 Blood Pressure 160/87 H 115/72 Pulse Oximetry 100 97 MDM - Neuro Symptoms/Deficit Lab Data Attestation: I reviewed the patient's lab results. Result diagrams: 10/23/20 15:15 10/23/20 15:15 Labs: Lab Results 10/23/20 10/23/20 Range/Units 15:15 15:15 WBC 7.9 (4.5-11.0) X10^3/uL RBC 4.44 (4.0-5.2) X10^6/uL Hgb 13.1 (12.0-16.0) g/dL Hct 39.8 (36-46) % MCV 89.6 (80-100) fL MCH 29.5 (26-34) PG MCHC 32.9 (30-36) % RDW 13.2 (11.6-14.8) % Plt Count 390 (150-400) X10^3/uL Neut % (Auto) 64.3 (50-75) % Lymph % (Auto) 30.6 (25-40) % Bucks % (Auto) 4.4 (3-14) % Eos % (Auto) 0.4 L (2-4) % Baso % (Auto) 0.3 (0-2) % Neut # (Auto) 5100 (7481-3764) /uL Lymph # (Auto) 2400 (8181-1874) /uL Bucks # (Auto) 400 (0-900) /uL Eos # (Auto) 0 (0-450) /uL Baso # (Auto) 0 (0-100) /uL Sodium 140 (137-145) mmol/L Potassium 3.7 (3.4-5.1) mmol/L Chloride 102 (98-107) mmol/L Carbon Dioxide 29 (22-32) mmol/L BUN 11 (7-17) mg/dL Creatinine 0.65 (0.52-1.04) mg/dL Estimated GFR > 60.0 (>60) mL/min BUN/Creatinine Ratio 16.9 (6-22) Glucose 96 (70-100) mg/dL Calcium 9.9 (8.4-10.2) mg/dL Total Bilirubin 0.7 (0.2-1.3) mg/dL AST 25 (14-36) IU/L ALT 19 (<35) IU/L Alkaline Phosphatase 44 (38-126) U/L Total Protein 8.8 H (6.3-8.2) g/dL Albumin 5.2 H (3.5-5.0) g/dL Globulin 3.6 (1.7-4.1) g/dL Albumin/Globulin Ratio 1.4 (1.0-2.8) Point of Care Testing Test Results Negative Urine Dip Bedside Urine Glucose Negative Bedside Urine Bilirubin - Negative Bedside Urine Ketone - Negative Urine Specific Carbon 1.020 Bedside Urine Occult Blood + Bedside Urine pH 6 Bedside Urine Protein - Negative Bedside Urine Urobilinogen - Negative Bedside Urine Nitrite - Negative Bedside Urine Leukocytes - Negative Esterase Imaging Data MR Lumbar: Radiologist's Impression: PROCEDURE: MR LUMBAR SPINE WO/W CON INDICATIONS: increasing right leg weakness, bilateral pain. back pain TECHNIQUE: Noncontrast sagittal T1 spin echo and T2 fast spin echo, sagittal STIR, axial T1 and T2 fast spin echo through the lumbar spine. In cases with scoliosis, additional coronal T2 fast spin echo may be performed. After the administration of contrast, sagittal and axial T1 spin echo with fat saturation through the lumbar spine. COMPARISON: [facility], CR, XR LUMBAR SPINE 2-3V, 03/24/2020, 8:11. FINDINGS: Image quality: Excellent. Alignment and curvature: There is normal bony alignment. Marrow: Small benign intraosseous hemangiomas noted in the L2 and S1 vertebral bodies. No acute vertebral body compression fractures. No suspicious marrow enhancement. Spinal cord: Conus medullaris terminates at the L1 level. Visualized spinal cord demonstrates normal signal, without suspicious enhancement. Paraspinous soft tissues: No paravertebral masses or abnormal enhancement. 1.5 centimeter right renal cyst. T12-L1: Normal appearance. L1-L2: Normal appearance. L2-L3: Normal appearance. L3-L4: Normal appearance. L4-L5: Normal appearance. L5-S1: Normal appearance. IMPRESSION: 1. Normal examination. 2. No central stenosis. 3. No neural foraminal narrowing. 4. No neural compression. 5. No suspicious postcontrast enhancement. Dictated by: Ninfa Ching MD, PhD on 10/23/2020 at 16:18 MDM Narrative Medical decision making narrative: Patient is ambulatory in the ED. MRI is negative. She is really complaining of pain over her buttock region I suspect piriformis or other gluteal spasm causing sciatic pain. Will do a trial of gabapentin along with muscle relaxers. She is ambulatory she shows no signs of weakness in her lower extremities. There is certainly no ascending paralysis or signs of other concerning etiology. Discharge Plan Departure Patient Disposition: Home Clinical Impression: Piriformis syndrome Qualifiers: Laterality: right Qualified Code(s): G57.01 - Lesion of sciatic nerve, right lower limb Acute back pain with sciatica Qualifiers: Laterality: right Qualified Code(s): M54.41 - Lumbago with sciatica, right side Instructions: DI for Back Pain With Sciatica Activity Restrictions/Additional Instructions: *You have been diagnosed with back pain with sciatic *What to do: At this time MRI is negative in does not show any abnormality. Based on her history and current symptoms and believe you to have sciatic pain and a peer form is muscle spasm. *Continue to take medications as directed-->SENT TO [facility] IN [place] Gabapentin 300 mg at night for 1 week, do a trial and see if it helps. This can cause drowsiness Flexeril 5 mg every would hours if needed for muscle spasm. This can cause drowsiness *Follow up with your primary care provider in 2-3 days *Return to ER if you should have increased weakness, loss of urine or stool, fever or any new, worsening or concerning symptoms Prescriptions: New gabapentin 300 mg capsule 300 mg PO BEDTIME Qty: 10 RF: 0 cyclobenzaprine 5 mg tablet 5 mg PO TID PRN (Reason: muscle spasm) Qty: 10 RF: 0 No Action trazodone 50 mg tablet 50 mg PO BEDTIME Qty: 30 RF: 2 Referrals: Tacho Blackburn MD [Primary Care Provider] -
--- NOTE | 2020-10-23 14:34 | DI.MRI.S_ITS ---
PROCEDURE: MR LUMBAR SPINE WO/W CON INDICATIONS: increasing right leg weakness, bilateral pain. back pain TECHNIQUE: Noncontrast sagittal T1 spin echo and T2 fast spin echo, sagittal STIR, axial T1 and T2 fast spin echo through the lumbar spine. In cases with scoliosis, additional coronal T2 fast spin echo may be performed. After the administration of contrast, sagittal and axial T1 spin echo with fat saturation through the lumbar spine. COMPARISON: [facility], CR, XR LUMBAR SPINE 2-3V, 03/24/2020, 8:11. FINDINGS: Image quality: Excellent. Alignment and curvature: There is normal bony alignment. Marrow: Small benign intraosseous hemangiomas noted in the L2 and S1 vertebral bodies. No acute vertebral body compression fractures. No suspicious marrow enhancement. Spinal cord: Conus medullaris terminates at the L1 level. Visualized spinal cord demonstrates normal signal, without suspicious enhancement. Paraspinous soft tissues: No paravertebral masses or abnormal enhancement. 1.5 centimeter right renal cyst. T12-L1: Normal appearance. L1-L2: Normal appearance. L2-L3: Normal appearance. L3-L4: Normal appearance. L4-L5: Normal appearance. L5-S1: Normal appearance. IMPRESSION: 1. Normal examination. 2. No central stenosis. 3. No neural foraminal narrowing. 4. No neural compression. 5. No suspicious postcontrast enhancement. Dictated by: Ninfa Ching MD, PhD on 10/23/2020 at 16:18 Approved by: Ninfa Ching MD, PhD on 10/23/2020 at 16:22
[2020-10-23 15:25] LABS: Add Manual Diff / Slide Review NO; Basophils Absolute Auto 0 /uL (0-100); Basophils Percent Auto 0.3 % (0-2); Eosinophils Absolute Auto 0 /uL (0-450); Eosinophils Percent Auto 0.4 % (2-4); Hematocrit 39.8 % (36-46); Hemoglobin 13.1 g/dL (12.0-16.0); Lymphocytes Absolute Auto 2400 /uL (1100-4500); Lymphocytes Percent Auto 30.6 % (25-40); Mean Corpuscular HGB Conc 32.9 % (30-36); Mean Corpuscular Hemoglobin 29.5 PG (26-34); Mean Corpuscular Volume 89.6 fL (80-100); Monocytes Absolute Auto 400 /uL (0-900); Monocytes Percent Auto 4.4 % (3-14); Neutrophils Absolute Auto 5100 /uL (1500-7000); Neutrophils Percent Auto 64.3 % (50-75); Platelet Count 390 X10^3/uL (150-400); Red Blood Cell Count 4.44 X10^6/uL (4.0-5.2); Red Cell Distribution Width 13.2 % (11.6-14.8); White Blood Cell Count 7.9 X10^3/uL (4.5-11.0)
[2020-10-23 15:33] LABS: Alanine Aminotransferase 19 IU/L (<35); Albumin 5.2 g/dL (3.5-5.0); Albumin Globulin Ratio 1.4 (1.0-2.8); Alkaline Phosphatase 44 U/L (38-126); Aspartate Aminotransferase 25 IU/L (14-36); BUN Creatinine Ratio 16.9 (6-22); Bilirubin Total 0.7 mg/dL (0.2-1.3); Blood Urea Nitrogen 11 mg/dL (7-17); Calcium 9.9 mg/dL (8.4-10.2); Carbon Dioxide 29 mmol/L (22-32); Chloride 102 mmol/L (98-107); Estimated Glomerular Filt Rate > 60.0 mL/min (>60); Globulin 3.6 g/dL (1.7-4.1); Glucose 96 mg/dL (70-100); HEMOLYSIS < 15 (0-50); Potassium 3.7 mmol/L (3.4-5.1); Sodium 140 mmol/L (137-145); Total Protein 8.8 g/dL (6.3-8.2)
[2020-10-23 17:31] VITALS: BP 115/72; RESP 16; O2SAT 97
== END 2020-10-23 17:34 | disposition home or self-care (01) ==
PROVIDERS: Emergency Provider Emergency Medicine; PCP Family Medicine
DX: G57.01 Lesion of sciatic nerve, right lower limb (principal); M54.41 Lumbago with sciatica, right side
CPT/HCPCS: 72158; 80053; 81003; 81025; 85025; 87086; 99283; 99284; A9579

== ENCOUNTER → 2020-10-23 12:27 | Outpatient (CLI) | payer OTHER, SELFPAY | PROVIDERS: PCP Family Medicine; Visit Provider Student in an Organized Health Care Education/Training Program | DX: M54.5 Low back pain (principal) | CPT/HCPCS: 87086 ==

== ENCOUNTER → 2020-10-25 13:47 | Outpatient (CLI) | payer OTHER, SELFPAY | PROVIDERS: PCP Family Medicine; Visit Provider Physician Assistant | DX: N89.8 Other specified noninflammatory disorders of vagina (principal); N34.3 Urethral syndrome, unspecified | CPT/HCPCS: 87086; 87210 ==

== ENCOUNTER → 2021-01-02 16:20 | Outpatient (CLI) | payer OTHER, SELFPAY | PROVIDERS: PCP Family Medicine; Referring Provider Physician Assistant; Visit Provider Physician Assistant | DX: R39.15 Urgency of urination (principal) | CPT/HCPCS: 87086 ==

== ENCOUNTER → 2021-01-02 16:45 | Outpatient (CLI) | payer OTHER, SELFPAY ==
--- NOTE | 2021-01-02 | DI.MRI.S_ITS ---
PROCEDURE: MR THORACIC SPINE WO CON INDICATIONS: Paresthesia of skin TECHNIQUE: Noncontrast sagittal T1 spine echo and T2 fast spin echo, sagittal STIR, axial T1 and T2 fast spin echo through the thoracic spine. COMPARISON: None. FINDINGS: Image quality: Excellent. Alignment and Curvature: There is normal bony alignment. Bone Marrow: Multiple, benign, intraosseous hemangiomas noted in the T4, T5, T8, T9, T10, T11, T12 and L2 vertebral bodies. No acute vertebral body compression fractures. Spinal Cord: Visualized spinal cord is normal in size and signal. Paraspinous Soft Tissues: No paravertebral masses. Miscellaneous: On axial images, central canal and foramina appear widely patent at all scanned levels. IMPRESSION: 1. No abnormal spinal cord signal. 2. No central stenosis. 3. No neural foraminal narrowing. 4. No neural compression. Dictated by: Ninfa Ching MD, PhD on 01/05/2021 at 11:03 Approved by: Ninfa Ching MD, PhD on 01/05/2021 at 11:06
--- NOTE | 2021-01-02 | DI.MRI.S_ITS ---
PROCEDURE: MR HEAD/BRAIN WO/W CON INDICATIONS: Paresthesia of skin TECHNIQUE: Noncontrast axial T1 spin echo, axial T2 fast spin echo, sagittal and axial FLAIR, coronal T2 fast spin echo, axial gradient echo, axial diffusion and ADC through the brain. After the administration of contrast, axial and coronal 3D VIBE or T1 spin echo with fat saturation through the brain. COMPARISON: None. FINDINGS: Image quality: Excellent. CSF Spaces: Basal cisterns are patent. No extra-axial fluid collections. Ventricles are normal in size and shape. Brain: No midline shift. No intracranial bleeds or masses. No abnormal intracranial enhancement. The brainstem appears normal. Diffusion-weighted images demonstrate no acute ischemic insults. No chronic ischemic insults. Normal intravascular flow voids are present. Skull and face: Calvarial marrow is normal in signal. Orbits appear normal. Sinuses: Large left maxillary sinus mucous retention cyst versus polyp. The mastoids appear clear. IMPRESSION: 1. No intracranial disease process. 2. No abnormal intracranial mass or mass effect. 3. No suspicious postcontrast enhancement. 4. No abnormal intracranial signal. 5. Large left maxillary sinus mucous retention cyst versus polyp. Dictated by: Ninfa Ching MD, PhD on 01/05/2021 at 10:18 Approved by: Ninfa Ching MD, PhD on 01/05/2021 at 10:22
--- NOTE | 2021-01-02 | DI.MRI.S_ITS ---
PROCEDURE: MR CERVICAL SPINE WO CON INDICATIONS: Paresthesia of skin TECHNIQUE: Noncontrast sagittal T1 spin echo and T2 fast spin echo, sagittal STIR, foraminal oblique sagittal T2 fast spin echo, and axial gradient echo or T2 fast spin echo through the cervical spine. COMPARISON: None. FINDINGS: Image quality: Excellent. Alignment and Curvature: There is normal bony alignment. Bone Marrow: Marrow demonstrates normal overall signal. Spinal Cord: Visualized spinal cord has normal size and signal. No cerebellar tonsillar herniation. Paraspinous Soft Tissues: No paravertebral masses. Prevertebral soft tissues are normal in thickness. C2-C3: Normal appearance. C3-C4: Slight loss of disc signal. No central stenosis. No neural foraminal narrowing. No neural compression. C4-C5: Normal appearance. C5-C6: Slight loss of disc signal. No central stenosis. No neural foraminal narrowing. No neural compression. C6-C7: Slight loss of disc signal. Minimal, diffuse disc bulge. No central stenosis. No neural foraminal narrowing. No neural compression. C7-T1: Normal appearance. IMPRESSION: 1. Mild multilevel degenerative disc disease. 2. No central stenosis. 3. No neural foraminal narrowing. 4. No neural compression. 5. No abnormal spinal cord signal. Dictated by: Ninfa Ching MD, PhD on 01/05/2021 at 10:07 Approved by: Ninfa Ching MD, PhD on 01/05/2021 at 10:16
== END ==
PROVIDERS: PCP Family Medicine; Referring Provider Psychiatry & Neurology Neurology; Visit Provider Psychiatry & Neurology Neurology
DX: R20.2 Paresthesia of skin (principal); R20.0 Anesthesia of skin; R39.15 Urgency of urination; M50.30 Other cervical disc degeneration, unspecified cervical region
CPT/HCPCS: 70553; 72141; 72146; 87086; A9579

== ENCOUNTER → 2021-01-09 15:05 | Outpatient (CLI) | payer OTHER, SELFPAY ==
--- NOTE | 2021-01-09 15:08 | DI.CT.S_ITS ---
PROCEDURE: CT KIDNEY URETER BLADDER (KUB) INDICATIONS: flank pain TECHNIQUE: Axial sections were acquired from the lung bases to the pubic symphysis. Coronal and sagittal reformats were performed. For radiation dose reduction, the following was used: automated exposure control, adjustment of mA and/or kV according to patient size. COMPARISON:[facility], , PELVIC COMPLETE, 03/11/2020, 7:40. FINDINGS: Image quality: Excellent. Lung bases: Unremarkable. Heart: No significant findings. URINARY: Right Kidney: No stones. Mild pelvicaliectasis. 1.7 centimeter cyst in the lower pole. Right Ureter: No hydroureter. Left Kidney: No stones or hydronephrosis. Left Ureter: No hydroureter. Bladder: Normal wall thickness. No stones. ABDOMEN: Liver: Unremarkable. Gallbladder: Contracted but within normal limits. Biliary ducts: Unremarkable. Pancreas: Unremarkable. Spleen: Unremarkable. Adrenal Glands: Unremarkable. Stomach and Bowel: Stomach, small bowel loops, and colon are unremarkable. Appendix is not definitely visualized, however no inflammatory changes or free fluid noted adjacent to the cecum. Peritoneum: No abnormal intraperitoneal fluid. No free air. Ventral Wall: No hernia. Abdominal Nodes: No enlarged retroperitoneal or mesenteric lymph nodes. Vessels: Aorta and inferior vena cava are normal in size. PELVIS: Pelvic Organs: 2.2 x 1.0 x 1.1 centimeter curvilinear low-density lesion noted adjacent to the anterior right margin of the uterus may represent fluid-filled, dilated fallopian tube.. Pelvic Nodes: Unremarkable. Miscellaneous: No inguinal hernias are seen. Bones: Unremarkable. IMPRESSION: 1. No renal stone. 2. Mild right pelvocaliectasis which could be related to recently passed stone. 3. Curvilinear low-density lesion adjacent to the right margin of the uterus which may represent fluid-filled dilated fallopian tube. Recommend pelvic ultrasound for additional evaluation. Dictated by: Ninfa Ching MD, PhD on 01/09/2021 at 15:32 Approved by: Ninfa Ching MD, PhD on 01/09/2021 at 15:40
== END ==
PROVIDERS: PCP Family Medicine; Referring Provider Physician Assistant; Visit Provider Physician Assistant
DX: R10.9 Unspecified abdominal pain (principal); N28.89 Other specified disorders of kidney and ureter
CPT/HCPCS: 74176

== ENCOUNTER → 2021-01-12 10:13 | Outpatient (CLI) | payer OTHER, SELFPAY ==
[2021-01-12 10:34] LABS: COVID19 -Nasal RAPID Negative (Negative)
== END ==
PROVIDERS: PCP Family Medicine; Visit Provider Physician Assistant
DX: R05 Cough (principal); Z20.822 Contact with and (suspected) exposure to COVID-19; R09.89 Other specified symptoms and signs involving the circulatory and respiratory systems
CPT/HCPCS: 87635

== ENCOUNTER 2021-01-13 18:39 | Emergency (ER) | payer OTHER, SELFPAY ==
[2021-01-13 18:47] VITALS: PULSE 73; RESP 18; TEMP 37.4; O2SAT 99
[2021-01-13 18:49] VITALS: BP 139/60
--- NOTE | 2021-01-13 18:49 | DI.RAD.S_ITS ---
PROCEDURE: XR CHEST 1V INDICATIONS: chest pain TECHNIQUE: One view of the chest was acquired. COMPARISON: None. FINDINGS: Surgical changes and devices: Status post ORIF of the right clavicle.. Lungs and pleura: Lungs are clear. No pleural effusions or pneumothorax. Mediastinum: Mediastinal contours appear normal. Heart size is normal. Bones and chest wall: No suspicious bony lesions. Overlying soft tissues appear unremarkable. IMPRESSION: No acute cardiopulmonary abnormalities or focal airspace disease. Dictated by: Allan Nicole M.D. on 01/13/2021 at 20:02 Approved by: Allan Nicole M.D. on 01/13/2021 at 20:07
[2021-01-13 19:10] LABS: Add Manual Diff / Slide Review NO; Basophils Absolute Auto 100 /uL (0-100); Basophils Percent Auto 0.9 % (0-2); Eosinophils Absolute Auto 300 /uL (0-450); Eosinophils Percent Auto 3.6 % (2-4); Hematocrit 39.6 % (36-46); Hemoglobin 13.2 g/dL (12.0-16.0); Lymphocytes Absolute Auto 2300 /uL (1100-4500); Mean Corpuscular HGB Conc 33.4 % (30-36); Mean Corpuscular Hemoglobin 29.6 PG (26-34); Mean Corpuscular Volume 88.8 fL (80-100); Monocytes Absolute Auto 600 /uL (0-900); Monocytes Percent Auto 7.5 % (3-14); Neutrophils Absolute Auto 4400 /uL (1500-7000); Platelet Count 379 X10^3/uL (150-400); Red Blood Cell Count 4.46 X10^6/uL (4.0-5.2); Red Cell Distribution Width 12.9 % (11.6-14.8); White Blood Cell Count 7.6 X10^3/uL (4.5-11.0)
[2021-01-13 19:19] LABS: Alanine Aminotransferase 17 IU/L (<35); Albumin 5.1 g/dL (3.5-5.0); Albumin Globulin Ratio 1.5 (1.0-2.8); Alkaline Phosphatase 42 U/L (38-126); Aspartate Aminotransferase 21 IU/L (14-36); BUN Creatinine Ratio 12.1 (6-22); Bilirubin Total 0.4 mg/dL (0.2-1.3); Blood Urea Nitrogen 8 mg/dL (7-17); Calcium 9.6 mg/dL (8.4-10.2); Carbon Dioxide 27 mmol/L (22-32); Chloride 104 mmol/L (98-107); Creatine Kinase 63 U/L (30-135); Estimated Glomerular Filt Rate > 60.0 mL/min (>60); Globulin 3.5 g/dL (1.7-4.1); Glucose 97 mg/dL (70-100); HEMOLYSIS < 15 (0-50); Lipase 78 U/L (23-300); Potassium 3.9 mmol/L (3.4-5.1); Sodium 141 mmol/L (137-145); Total Protein 8.6 g/dL (6.3-8.2)
[2021-01-13 19:30] LABS: Troponin I < 0.012 ng/mL (0.01-0.034)
--- NOTE | 2021-01-13 23:24 | ED_ITS ---
HPI - Chest Pain General Chief Complaint: Chest Pain Stated Complaint: Chest pain, diarrhea, fatigue. covid-. Sent by [facility] Time Seen by Provider: 01/13/21 23:16 Source: patient Mode of arrival: Ambulatory History of Present Illness HPI narrative: Patient is a 40-year-old female. Has had some fatigue and chest discomfort and shortness of breath on exertion for the past couple days. Now over the past 24 hours she has developed some diarrhea. She has been seen by the walk-in clinic within the past 24 hours. Had a COVID test that was ne gative. No fevers. Has not seen her primary doctor. No recent travel. No abdominal pain. Related Data Home Medications Medication Instructions Recorded Confirmed No Known Home Medications 01/12/21 01/12/21 Allergies Allergy/AdvReac Type Severity Reaction Status Date / Time No Known Drug Allergies Allergy Verified 01/12/21 10:03 Review of Systems Constitutional Constitutional: Denies fever(s) Eyes Eyes: Reports system reviewed and no additional complaints, except as documented ENT Ears, Nose, Mouth, and Throat: Reports system reviewed and no additional complaints, except as documented Cardiovascular Cardiovascular: Reports chest pain (A couple days ago but not currently) and Reports dyspnea on exertion Respiratory Respiratory: Reports cough and Reports dyspnea on exertion Gastrointestinal Gastrointestinal: Reports diarrhea and Reports vomiting Genitourinary Genitourinary: Denies dysuria Musculoskeletal Musculoskeletal: Reports system reviewed and no additional complaints, except as documented Integumentary/Breasts Skin/Breast: Reports system reviewed and no additional complaints, except as documented Neurologic Neurologic: Reports system reviewed and no additional complaints, except as documented Hematologic/Lymphatic On Anticoagulants: No Allergic/Immunologic Allergic/Immunologic: Reports system reviewed and no additional complaints, except as documented Patient History Medical History Acquired short leg syndrome on left Anxiety Cervical spondylosis with radiculopathy Cervicogenic headache History of fracture of clavicle Low back pain Pelvic somatic dysfunction Surgical History History of endometrial ablation Status post surgical removal of both fallopian tubes Social History Smoking Status: Never smoker second hand exposure: No alcohol intake: current substance use type: does not use Smoking Status: Never smoker alcohol intake frequency: a few times a week Substance Use Type: does not use Exam Initial Vital Signs Initial Vital Signs: Vital Signs Temperature 99.4 F 01/13/21 18:47 Pulse Rate 73 01/13/21 18:47 Respiratory Rate 18 01/13/21 18:47 Pulse Oximetry 99 01/13/21 18:47 HENSD Head: normal to inspection and normocephalic Resp Effort & Inspection: normal respiratory effort Auscultation: clear to auscultation bilaterally Cardio Rate: regular rate Rhythm: regular rhythm GI Inspection: normal to inspection Skin General: no rashes or lesions noted Neuro General: patient alert, patient awake and patient oriented x3 Extrem General: normal to inspection Psych Appearance: grossly normal and well kempt Course Orders Ordered: ED Orders 01/13/21 18:49 XR chest 1V Stat EKG-12 Lead Stat 01/13/21 18:55 Complete Blood Count AUTO DIFF Stat Comprehensive Metabolic Panel Stat Lipase Stat Troponin & CK Cardiac Panel Stat 01/13/21 23:35 D Dimer Stat 01/14/21 00:00 CT angio chest PE protocol Stat 01/14/21 00:01 Test Serum,Qual Stat Vital Signs Vital signs: Vital Signs - 8 hr 01/13/21 18:47 01/13/21 18:49 Temperature 99.4 F Pulse Rate 73 Respiratory Rate 18 Blood Pressure 139/60 Pulse Oximetry 99 MDM - Chest Pain Lab Data Attestation: I reviewed the patient's lab results. Result diagrams: 01/13/21 18:55 01/13/21 18:55 Labs: Lab Results 01/13/21 01/13/21 01/13/21 Range/Units 18:55 18:55 18:55 WBC 7.6 (4.5-11.0) X10^3/uL RBC 4.46 (4.0-5.2) X10^6/uL Hgb 13.2 (12.0-16.0) g/dL Hct 39.6 (36-46) % MCV 88.8 (80-100) fL MCH 29.6 (26-34) PG MCHC 33.4 (30-36) % RDW 12.9 (11.6-14.8) % Plt Count 379 (150-400) X10^3/uL Neut % (Auto) 58.0 (50-75) % Lymph % (Auto) 30.0 (25-40) % [place] % (Auto) 7.5 (3-14) % Eos % (Auto) 3.6 (2-4) % Baso % (Auto) 0.9 (0-2) % Neut # (Auto) 4400 (1915-8379) /uL Lymph # (Auto) 2300 (3885-4932) /uL [place] # (Auto) 600 (0-900) /uL Eos # (Auto) 300 (0-450) /uL Baso # (Auto) 100 (0-100) /uL D-Dimer (<230) ng/mL Sodium 141 (137-145) mmol/L Potassium 3.9 (3.4-5.1) mmol/L Chloride 104 (98-107) mmol/L Carbon Dioxide 27 (22-32) mmol/L BUN 8 (7-17) mg/dL Creatinine 0.66 (0.52-1.04) mg/dL Estimated GFR > 60.0 (>60) mL/min BUN/Creatinine Ratio 12.1 (6-22) Glucose 97 (70-100) mg/dL Calcium 9.6 (8.4-10.2) mg/dL Total Bilirubin 0.4 (0.2-1.3) mg/dL AST 21 (14-36) IU/L ALT 17 (<35) IU/L Alkaline Phosphatase 42 (38-126) U/L Total Creatine Kinase 63 (30-135) U/L CK-MB (CK-2) TNP CK-MB (CK-2) Rel Index TNP Troponin I < 0.012 (0.01-0.034) ng/mL Total Protein 8.6 H (6.3-8.2) g/dL Albumin 5.1 H (3.5-5.0) g/dL Globulin 3.5 (1.7-4.1) g/dL Albumin/Globulin Ratio 1.5 (1.0-2.8) Lipase 78 (23-300) U/L Serum , Qual Negative (Negative) 01/13/21 Range/Units 23:35 WBC (4.5-11.0) X10^3/uL RBC (4.0-5.2) X10^6/uL Hgb (12.0-16.0) g/dL Hct (36-46) % MCV (80-100) fL MCH (26-34) PG MCHC (30-36) % RDW (11.6-14.8) % Plt Count (150-400) X10^3/uL Neut % (Auto) (50-75) % Lymph % (Auto) (25-40) % [place] % (Auto) (3-14) % Eos % (Auto) (2-4) % Baso % (Auto) (0-2) % Neut # (Auto) (2988-8233) /uL Lymph # (Auto) (7577-6618) /uL [place] # (Auto) (0-900) /uL Eos # (Auto) (0-450) /uL Baso # (Auto) (0-100) /uL D-Dimer 275 H (<230) ng/mL Sodium (137-145) mmol/L Potassium (3.4-5.1) mmol/L Chloride (98-107) mmol/L Carbon Dioxide (22-32) mmol/L BUN (7-17) mg/dL Creatinine (0.52-1.04) mg/dL Estimated GFR (>60) mL/min BUN/Creatinine Ratio (6-22) Glucose (70-100) mg/dL Calcium (8.4-10.2) mg/dL Total Bilirubin (0.2-1.3) mg/dL AST (14-36) IU/L ALT (<35) IU/L Alkaline Phosphatase (38-126) U/L Total Creatine Kinase (30-135) U/L CK-MB (CK-2) CK-MB (CK-2) Rel Index Troponin I (0.01-0.034) ng/mL Total Protein (6.3-8.2) g/dL Albumin (3.5-5.0) g/dL Globulin (1.7-4.1) g/dL Albumin/Globulin Ratio (1.0-2.8) Lipase (23-300) U/L Serum , Qual (Negative) Imaging Data Chest x-ray: Radiologist's Impression: [address] [id number] ReportSigned Patient: Dulce Maria Yoo EMR#: [id number]: [id number]:[id number]/Sex: 40 / FDate of Service: 01/13/21Loc: EDAccession Number: [id number] Procedure: XR chest 1V Ordering Provider: Ha Stanford D.O. PROCEDURE: XR CHEST 1V INDICATIONS: chest pain TECHNIQUE: One view of the chest was acquired. COMPARISON: None. FINDINGS: Surgical changes and devices: Status post ORIF of the right clavicle.. Lungs and pleura: Lungs are clear. No pleural effusions or pneumothorax. Mediastinum: Mediastinal contours appear normal. Heart size is normal. Bones and chest wall: No suspicious bony lesions. Overlying soft tissues appear unremarkable. IMPRESSION: No acute cardiopulmonary abnormalities or focal airspace disease. Dictated by: Allan Nicole M.D. on 01/13/2021 at 20:02 Approved by: Allan Nicole M.D. on 01/13/2021 at 20:07 CT scan - chest: Radiologist's Impression: No evidence of pulmonary embolism ECG Data Attestation: I personally reviewed and interpreted this ECG as follows: Interpretation: Sinus rhythm Ventricular rate is 68 Normal axis Normal QRS Normal QTC No ST T wave changes MDM Narrative Medical decision making narrative: Patient's labs and chest x-ray and EKG are all unremarkable. Given her presentation and the fact that she states that she is feels like she cannot take a deep breath a D-dimer was ordered. This was elevated. The subsequent CTA showed no acute pathology. Given her labs in presentation today I do have low suspicion for ACS. I also have low suspicion for pneumonia. There are no pulmonary embolism seen on the CT scan. Unsure how her diarrhea that she has developed and the dyspnea on exertion are related. I feel that we should hold on any antibiotics for now. Informed the patient that she should talk with her primary doctor about further evaluation and to discuss potential further workup to include pulmonary function testing at this is warranted. She was given return precautions and follow-up instructions. She e xpressed understanding and agreement. Discharge Plan Departure Patient Disposition: Home Clinical Impression: Diarrhea, GARZON (dyspnea on exertion) Instructions: Diarrhea, DI for Shortness of Breath Activity Restrictions/Additional Instructions: You workup here in the emergency department today is very reassuring. There is no signs of any emergent condition. There is no signs of any infectious issues that would require antibiotics today. I recommend that you increase your fluid intake because of the diarrhea. Contact your primary provider for a follow-up. Return to the emergency department for any new or worsening symptoms. Prescriptions: No Action No Known Home Medications RF: 0 Referrals: Tacho Blackburn MD [Primary Care Provider] -
[2021-01-13 23:52] LABS: D Dimer 275 ng/mL (<230)
--- NOTE | 2021-01-14 | DI.CT.S_ITS ---
PROCEDURE: CT ANGIO CHEST PE PROTOCOL INDICATIONS: Chest pain, shortness of breath, tachycardia TECHNIQUE: After the administration of intravenous contrast, 2 mm thick sections acquired from the pulmonary apices to the posterior costophrenic angles. 3-dimensional maximum intensity projection (MIP) coronal and sagittal reformats were then acquired through the thorax. For radiation dose reduction, the following was used: automated exposure control, adjustment of mA and/or kV according to patient size. COMPARISON: None. FINDINGS: Lungs: Scattered subsegmental atelectasis and/or scarring. No focal consolidation. Pleura: No pleural effusion or pneumothorax. Heart: Heart size is normal. No pericardial effusion. Chest nodes: Normal. Thyroid gland: Normal. Aorta: Normal in size. Pulmonary arteries: Normal. Esophagus: Normal. Upper abdomen: No significant findings. Bones: Normal. IMPRESSION: No evidence of pulmonary embolism. No aortic dissection identified. No acute consolidation. Dictated by: Jhonatan Meza M.D. on 01/14/2021 at 9:12 Approved by: Jhonatan Meza M.D. on 01/14/2021 at 9:19
[2021-01-14 00:32] LABS: Pregnancy Test Serum,Qual Negative (Negative)
[2021-01-14 02:15] VITALS: BP 110/55; PULSE 67; RESP 14; O2SAT 97
== END 2021-01-14 02:15 | disposition home or self-care (01) ==
PROVIDERS: Emergency Provider Emergency Medicine; PCP Family Medicine
DX: R19.7 Diarrhea, unspecified (principal); R06.00 Dyspnea, unspecified; R06.02 Shortness of breath; R11.10 Vomiting, unspecified
CPT/HCPCS: 36415; 71045; 71275; 80053; 82550; 83690; 84484; 84703; 85025; 85379; 93005; 99281; 99284; Q9967

== ENCOUNTER → 2021-03-26 11:55 | Outpatient (CLI) | payer OTHER, SELFPAY ==
--- NOTE | 2021-03-26 11:58 | DI.RAD.S_ITS ---
PROCEDURE: XR CHEST 2V INDICATIONS: CHEST/RT HIP PAIN TECHNIQUE: 2 views of the chest were acquired. COMPARISON: [facility], CR, XR CHEST 1V, 01/13/2021, 18:58. FINDINGS: Surgical changes and devices: Status post ORIF of the right clavicle. No evidence for hardware complication. Lungs and pleura: Lungs are clear. No pleural effusions or pneumothorax. Mediastinum: Mediastinal contours are normal. Heart size is normal. Bones and chest wall: No suspicious bony abnormalities. Soft tissues appear unremarkable. IMPRESSION: Chest without acute cardiopulmonary abnormalities. No focal airspace disease. Dictated by: Allan Nicole M.D. on 03/26/2021 at 14:07 Approved by: Allan Nicole M.D. on 03/26/2021 at 14:07
--- NOTE | 2021-03-26 11:58 | DI.RAD.S_ITS ---
PROCEDURE: XR HIP W PEL IF DONE RT 2V INDICATIONS: CHEST/RT HIP PAIN TECHNIQUE: AP pelvis with lateral view(s) of the right hip(s). COMPARISON: None. FINDINGS: Bones: No fractures or dislocations. Pelvic ring appears intact. No suspicious bony lesions. Soft tissues: The visualized bowel gas pattern is normal. No suspicious soft tissue calcifications. IMPRESSION: Right hip without acute fracture or significant degenerative change. Dictated by: Allan Nicole M.D. on 03/26/2021 at 14:06 Approved by: Allan Nicole M.D. on 03/26/2021 at 14:06
== END ==
PROVIDERS: PCP Family Medicine; Referring Provider Family Medicine; Visit Provider Family Medicine
DX: M25.551 Pain in right hip (principal); R07.89 Other chest pain
CPT/HCPCS: 71046; 73502

== ENCOUNTER → 2021-05-27 07:33 | Outpatient (CLI) | payer OTHER, SELFPAY ==
[2021-05-27 08:29] LABS: COVID19 -Nasal RAPID Negative (Negative)
== END ==
PROVIDERS: PCP Family Medicine; Referring Provider Internal Medicine; Visit Provider Internal Medicine
DX: Z20.822 Contact with and (suspected) exposure to COVID-19 (principal)
CPT/HCPCS: 87635; C9803

== ENCOUNTER → 2021-05-28 07:03 | Outpatient (CLI) | payer OTHER, SELFPAY ==
--- NOTE | 2021-06-03 08:59 | PM.PFT.1 ---
Pulmonary Function Test Referral & Results Date Patient Seen: 05/28/21 Requesting provider: Tacho Blackburn Results: The spirometry demonstrates an FVC of 3.97 L which is 100% of predicted. The FEV1 was measured at 3.11 L which is 97% of predicted. The FEV1/FVC ratio was 78 which is 95% of predicted. Following the administration of bronchodilator there was no appreciable change to above normal numbers Lung volumes show an SVC of 3.99 L which is 109% of predicted. The diffusing capacity was measured at 20.51 which is 105% of predicted. The maximum voluntary ventilation was normal Interpretation: This study demonstrates normal pulmonary function
== END ==
PROVIDERS: PCP Family Medicine; Referring Provider Family Medicine; Visit Provider Family Medicine
DX: R06.9 Unspecified abnormalities of breathing (principal)
CPT/HCPCS: 94060; 94726; 94729

== ENCOUNTER → 2021-06-12 14:48 | Outpatient (CLI) | payer OTHER, SELFPAY ==
--- NOTE | 2021-06-12 | DI.ECHO.S_ITS ---
[facility] +---------+ [facility] +---------+ : : [address] : : : : [id number] : : : : Phone: [phone]+ Echocardiogram Report + + :Name: PAUL DEL VALLE Study Date: 06/12/2021 Height: 66 in : :[facility] ReadingLocation: Weight: 200 lb : : Gender: Female BSA: 2.0 m2 : :: 1980 Age: 40 yrs BP: 124/76 mmHg: :Reason For Study: Chest pain : : Performed By: Sanket Ramírez : :Referring: JEREMIAH ESTEBAN : + + Interpretation Summary The ejection fraction is estimated to be 60-65%. Diastolic parameters suggest probable normal left ventricular diastolic function and normal filling pressures. Borderline right ventricular enlargement. The right ventricular systolic function is normal. No significant valvular abnormalities. Unable to estimate PASP. Procedure: A two-dimensional transthoracic echocardiogram with color flow and Doppler was performed. The study quality was technically adequate. There is no prior echocardiogram noted for this patient. The patient was in normal sinus rhythm during the exam. Left Ventricle: The left ventricle is normal in size and wall thickness. The ejection fraction is estimated to be 60-65%. Diastolic parameters suggest probable normal left ventricular diastolic function and normal filling pressures. Right Ventricle: Borderline right ventricular enlargement. The right ventricular systolic function is normal. Atria: The left atrial size is normal. Right atrial size is normal. There is no Doppler evidence for an interatrial shunt. The atrial septum is aneurysmal. Mitral Valve: The mitral valve leaflets appear borderline thickened, but open well. There is no mitral regurgitation noted. Aortic Valve: The aortic valve opens well. There is no aortic valve stenosis. No aortic regurgitation is present. Tricuspid Valve: The tricuspid valve is normal. There is trace tricuspid regurgitation. Pulmonary artery pressures cannot be estimated because of the lack of a measurable TR jet velocity. Pulmonic Valve: The pulmonic valve is normal in structure and function. Great Vessels: The aortic root is normal size. The ascending aorta is normal in size. The aortic arch is at the upper limits of normal in size. The IVC is of normal diameter and collapses greater than 50% with a sniff. This suggests a low right atrial pressure of 3 mm Hg. Pericardium/ Pleura There is no pericardial effusion. There is an anterior echo-free space consistent with a fat pad. There is no pleural effusion. MMode/2D Measurements & Calculations LVIDd: 4.6 cm LVOT diam: 2.0 cm LVIDs: 3.1 cm Ao root diam: 2.7 cm FS: 31.6 % asc Aorta Diam: 2.6 cm IVSd: 0.56 cm Ao Arch Diam (Prox Trans): 3.4 cm LVPWd: 0.83 cm LV pierre. diameter/BSA (cm/m^2): 2.3 LV sys. diameter/BSA (cm/m^2): 1.6 LA A2 area: 19.5 cm2 RA long axis: 5.7 cm LA A4 area: 22.6 cm2 RA area: 18.1 cm2 LA length (vol): 5.9 cm RA vol: 49.0 ml LA vol: 63.5 ml RA : 24.5 ml/m2 LA vol index: 31.7 ml/m2 TAPSE: 3.7 cm Doppler Measurements & Calculations Ao V2 max: 187.1 cm/sec LVOT Max Mike: 140.4 cm/sec Ao V2 mean: 137.1 cm/sec LV V1 max P.9 mmHg Ao max P.0 mmHg LV V1 VTI: 31.9 cm Ao mean P.0 mmHg ANGELO(I,D): 2.3 cm2 Ao V2 VTI: 43.4 cm ANGELO(V,D): 2.3 cm2 sev ratio: 0.73 ANGELO indexed to BSA (cm^2/m^2): 1.1 MV E max mike: 100.3 cm/sec TR max mike: 179.4 cm/sec MV A max mike: 59.1 cm/sec TR max P.9 mmHg MV E/A: 1.7 PA V2 max: 93.1 cm/sec Med Peak E' Mike: 14.3 cm/sec PA V2 mean: 74.6 cm/sec E/E' med: 7.0 PA mean P.3 mmHg Lat Peak E' Mike: 14.1 cm/sec PA pr(Accel): 24.2 mmHg E/E' lat: 7.1 E/e' average: 7.1 MV dec time: 0.16 sec SV([facility]): 99.8 ml Reading Physician:04:15 PM
== END ==
PROVIDERS: PCP Family Medicine; Referring Provider Family Medicine; Visit Provider Family Medicine
DX: R07.9 Chest pain, unspecified (principal)
CPT/HCPCS: 93306

== ENCOUNTER → 2021-06-30 11:27 | Outpatient (CLI) | payer OTHER, SELFPAY ==
[2021-06-30 12:44] LABS: COVID19 -Nasal RAPID POSITIVE (Negative)
== END ==
PROVIDERS: PCP Family Medicine; Visit Provider Nurse Practitioner Family
DX: Z20.822 Contact with and (suspected) exposure to COVID-19 (principal)
CPT/HCPCS: 87635